=== PATIENT | female | born 1995 | race Caucasian/White ===

== ENCOUNTER 2024-10-22 00:12 | Inpatient (IN) | payer OTHER ==
[~2024-10-22 00:12] MED LIST: Carboprost Tromethamine 250 MCG/1 ML Amp IM PRN; Methylergonovine 0.2 MG/1 ML Amp IM PRN; NIFEdipine 10 MG Cap PO PRN; Oxytocin/Lactated Ringers 30 UNIT/500 ML BAG IV SCH; Sodium Chloride 0.9% 10 ML Syringe FLUSH PRN; Tranexamic Acid 1,000 MG in Sodium Chloride 0.9% 100 ML IV PRN
[2024-10-22 01:12] LABS: HEMATOCRIT 33.9 % (37.0-47.0); HEMOGLOBIN 11.4 g/dL (12.0-16.0); MEAN CORPUSCULAR HEMOGLOBIN 31.9 pg (27.0-34.0); MEAN CORPUSCULAR HGB CONC 33.6 g/dL (33.0-35.0); RED BLOOD CELL COUNT 3.57 10^6/uL (4.2-5.4); WHITE BLOOD CELL COUNT,WBC 8.3 10^3/uL (5.0-10.0)
[2024-10-22 01:31] LABS: ALANINE AMINOTRANSFERASE,ALT 31 U/L (14-59); ASPARTATE AMNIOTRANSFERASE,AST 20 U/L (15-37); BLOOD UREA NITROGEN,BUN 5 mg/dL (7-18); CREATININE 0.68 mg/dL (0.55-1.02); LACTATE DEHYDROGENASE,LDH 201 U/L (81-234); URIC ACID 3.7 mg/dL (2.6-6.0)
[2024-10-22 01:32] LABS: ESTIMATED GFR 120 mL/min (>=60)
[2024-10-22] MEDS ORDERED: Calcium Gluconate 10% 1 GM/10 ML SDV IVPUSH PRN (02:04)
[2024-10-22] MEDS: Labetalol 20 MG/4 ML Syringe IVPUSH PRN (02:18)
[2024-10-22] MEDS: Magnesium Sulfate 4 GM/100 mL 4 GM in Premix Bag 1 BAG IV ONE (02:20)
[2024-10-22] MEDS: Misoprostol 50 MCG (1/2 of 100 MCG) Tab PO SCH (02:23)
[2024-10-22 02:38] LABS: CREATININE,URINE RAND < 13.00 mg/dL (No establ ref range); PROTEIN,URINE RANDOM < 6.0 mg/dL (0.0-11.9)
[2024-10-22] MEDS: Magnesium Sulfate 2 GM/50 mL 2 GM in Premix Bag 1 BAG IV ONE (02:40)
[2024-10-22] MEDS: Labetalol 20 MG/4 ML Syringe IVPUSH ONE (03:10)
[2024-10-22] MEDS: Lactated Ringers 1,000 ML IV SCH (03:11)
[2024-10-22] MEDS: MAGNESIUM SULFATE IV SCH (03:38)
[2024-10-22] MEDS: Magnesium Sulf/Wat 4 GM/50 mL 4 GM in Premix Bag 50 BAG IV ONE (04:11)
[2024-10-22] MEDS: Labetalol 100 MG Tab PO ONE (04:15)
[2024-10-22] MEDS: Labetalol 20 MG/4 ML Syringe ONE (04:17)
[2024-10-22] MEDS: NIFEdipine 10 MG Cap PO SCH (05:06)
[2024-10-22] MEDS: Misoprostol 25 MCG (1/4 of 100 MCG) Tab PO PRN (06:43)
[2024-10-22] MEDS: Acetaminophen 325 MG Tab PO PRN (07:25)
[2024-10-22] MEDS: hydrALAZINE 20 MG/ML SDV IVPUSH PRN (11:06)
[2024-10-22] MEDS: NIFEdipine 30 MG Tab.ER PO ONE (11:12)
[2024-10-22] MEDS: Prenatal Multivitamin with Calcium/Folic Acid/Iron Tab PO SCH (12:04)
[2024-10-22] MEDS: hydrOXYzine HCl 25 MG Tab PO PRN ×2 (12:42→23:20)
[2024-10-22] MEDS: Furosemide 20 MG Tab PO ONE (12:54)
[2024-10-22] MEDS: Ondansetron 4 MG/2 ML SDV IVPUSH PRN (13:25)
[2024-10-22] MEDS: Labetalol 100 MG Tab PO SCH (14:16)
[2024-10-22] MEDS ORDERED: NIFEdipine 30 MG Tab.ER PO SCH (17:00)
[2024-10-22] MEDS: NIFEdipine 30 MG Tab.ER PO SCH (17:22)
[2024-10-22] MEDS: Misoprostol 100 MCG Tab PO ONE (20:28)
[2024-10-23] MEDS: Lactated Ringers 1,000 ML IV SCH (08:00)
[2024-10-23] MEDS: Oxytocin/Normal Saline 30 UNIT/500 ML BAG IV SCH (08:01)
[2024-10-23] MEDS: Lidocaine 1% 5 ML VIAL ONE (16:44)
[2024-10-23] MEDS: Lidocaine 1% 30 ML SDV ONE (16:44)
[2024-10-23] MEDS: Lidocaine 1% 30 ML SDV INJECT ONE ×2 (17:03→18:17)
[2024-10-23] MEDS: Lidocaine 1% 5 ML VIAL INJECT ONE (17:03)
[2024-10-23] MEDS: hydrOXYzine HCl 25 MG Tab PO ONE (23:46)
[2024-10-24] MEDS ORDERED: Lidocaine 1% 2 ML ONE (11:38)
[2024-10-24] MEDS: Lactated Ringers 1,000 ML IV ONE (18:31)
[2024-10-24] MEDS ORDERED: Oxytocin 10 Units/1 ML SDV IM PRN (18:51)
[2024-10-24] MEDS ORDERED: Lidocaine 2% 20 ML MDV ONE (18:58)
[2024-10-24] MEDS ORDERED: Tranexamic Acid 1,000 MG/10 ML Vial ONE (18:58)
[2024-10-24] MEDS ORDERED: Sodium Chloride 0.9% 100 ML ONE (18:59)
[2024-10-24] MEDS ORDERED: Lactated Ringers 1,000 ML IV SCH ×2 (19:00)
[2024-10-24] MEDS: Misoprostol 100 MCG Tab RECTAL PRN (20:40)
[2024-10-24] MEDS ORDERED: ceFAZolin 2 GM Vial ONE ×2 (20:52→20:53)
[2024-10-24] MEDS ORDERED: ceFAZolin 1 GM Vial ONE (20:53)
[2024-10-24] MEDS: Ketorolac 30 MG/ML SDV IVPUSH ONE (21:45)
[2024-10-24] MEDS: Acetaminophen/oxyCODONE 325-5 MG Tab PO PRN (22:00)
[2024-10-24] MEDS: Labetalol 20 MG/4 ML Syringe IVPUSH ONE (22:41)
[2024-10-24] MEDS: Labetalol 20 MG/4 ML Syringe ONE ×2 (22:49)
[2024-10-24] MEDS ORDERED: Tranexamic Acid 1,000 MG in Sodium Chloride 0.9% 100 ML IV PRN (22:50)
[2024-10-24] MEDS ORDERED: Naloxone 2 MG/2 ML Syringe IVPUSH PRN (22:50)
[2024-10-24] MEDS ORDERED: ePHEDrine 50 MG/ML SDV IVPUSH PRN (22:50)
[2024-10-24] MEDS ORDERED: Carboprost Tromethamine 250 MCG/1 ML Amp IM PRN (22:50)
[2024-10-24] MEDS ORDERED: Oxytocin/Lactated Ringers 30 UNIT/500 ML BAG IV SCH (22:50)
[2024-10-24] MEDS ORDERED: Methylergonovine 0.2 MG/1 ML Amp IM PRN (22:50)
[2024-10-24] MEDS ORDERED: Ondansetron 4 MG/2 ML SDV IVPUSH PRN (22:50)
[2024-10-24] MEDS ORDERED: Zolpidem 5 MG Tab PO PRN (22:50)
[2024-10-24] MEDS ORDERED: Acetaminophen/oxyCODONE 325-5 MG Tab PO PRN (22:50)
[2024-10-24] MEDS ORDERED: diphenhydrAMINE 50 MG/ML SDV IVPUSH PRN (22:50)
[2024-10-24] MEDS ORDERED: Acetaminophen 325 MG Tab PO PRN (22:50)
[2024-10-25] MEDS: Furosemide 100 MG/10 ML SDV IVPUSH ONE (00:30)
[2024-10-25] MEDS: hydrOXYzine HCl 25 MG Tab PO ONE (01:00)
[2024-10-25] MEDS: MAGNESIUM SULFATE IV SCH (01:40)
[2024-10-25] MEDS: Ketorolac 30 MG/ML SDV ONE (02:03)
[2024-10-25] MEDS: Acetaminophen/oxyCODONE 325-5 MG Tab ONE (02:03)
[2024-10-25] MEDS: ceFAZolin 2 GM Vial IVPUSH ONE (02:10)
[2024-10-25] MEDS: Magnesium Sulfate 20 GM/500mL 20 GM/500 ML BAG ONE (02:14)
[2024-10-25] MEDS: hydrOXYzine HCl 25 MG Tab ONE (02:14)
[2024-10-25] MEDS: Lactated Ringers 1,000 ML IV SCH (02:53)
[2024-10-25] MEDS: Ketorolac 30 MG/ML SDV IVPUSH SCH (04:10)
[2024-10-25] MEDS: Pantoprazole 40 MG Tab.CR PO SCH (05:33)
[2024-10-25 06:25] LABS: HEMATOCRIT 33.7 % (37.0-47.0); HEMOGLOBIN 11.5 g/dL (12.0-16.0); MEAN CORPUSCULAR HEMOGLOBIN 32.3 pg (27.0-34.0); MEAN CORPUSCULAR HGB CONC 34.1 g/dL (33.0-35.0); MEAN CORPUSCULAR VOLUME 94.7 fL (80-100); RED BLOOD CELL COUNT 3.56 10^6/uL (4.2-5.4); WHITE BLOOD CELL COUNT,WBC 10.1 10^3/uL (5.0-10.0)
[2024-10-25] MEDS: NIFEdipine 30 MG Tab.ER PO SCH ×2 (06:25→16:37)
[2024-10-25 06:55] LABS: A/G RATIO 0.59; ALBUMIN 1.9 g/dL (3.4-5.0); ANION GAP 10.6 mEq/L (7-13); BILIRUBIN TOTAL 0.4 mg/dL (0.2-1.0); CALCIUM 6.8 mg/dL (8.5-10.1); CREATININE 0.87 mg/dL (0.55-1.02); EST CRCL DRUG DOSING (CG) 88.51 mL/min; POTASSIUM,K 2.6 mmol/L (3.5-5.1); PROTEIN TOTAL,TP 5.1 g/dL (6.4-8.2)
[2024-10-25] MEDS: Labetalol 100 MG Tab PO SCH (09:36)
[2024-10-25] MEDS: Prenatal Multivitamin with Calcium/Folic Acid/Iron Tab PO SCH (09:37)
[2024-10-25] MEDS: Simethicone 80 MG Tab.Chew PO SCH (09:37)
[2024-10-25] MEDS: Docusate Sodium 100 MG Cap PO PRN (09:37)
[2024-10-25] MEDS ORDERED: NIFEdipine 30 MG Tab.ER PO SCH (17:00)
[2024-10-25] MEDS: Ibuprofen 800 MG Tab PO SCH (23:47)
== END 2024-10-26 08:53 | disposition home or self-care (01) | DRG 788 ==
LOC: DL.OB 00:12 → OBSVTOIN 10-24 19:51
PROVIDERS: ADMIT Student in an Organized Health Care Education/Training Program; ATTEND Student in an Organized Health Care Education/Training Program
PROC: 3E0DXGC Introduction of Other Therapeutic Substance into Mouth and Pharynx, External Approach (ICD-10-PCS; 2024-10-24)
PROC: 10907ZC Drainage of Amniotic Fluid, Therapeutic from Products of Conception, Via Natural or Artificial Opening (ICD-10-PCS; 2024-10-24)
PROC: 4A1HXCZ Monitoring of Products of Conception, Cardiac Rate, External Approach (ICD-10-PCS; 2024-10-24)
PROC: 10H07YZ Insertion of Other Device into Products of Conception, Via Natural or Artificial Opening (ICD-10-PCS; 2024-10-24)
PROC: 10D00Z1 Extraction of Products of Conception, Low, Open Approach (ICD-10-PCS; principal; 2024-10-24 19:30)
DX: O14.14 Severe pre-eclampsia complicating childbirth (principal); Z37.0 Single live birth; Z3A.37 37 weeks gestation of pregnancy; O66.9 Obstructed labor, unspecified; O69.81X0 Labor and delivery complicated by cord around neck, without compression, not applicable or unspecified; O62.0 Primary inadequate contractions; F43.21 Adjustment disorder with depressed mood; O99.345 Other mental disorders complicating the puerperium
CPT/HCPCS: 36415; 51702; 80053; 82565; 82570; 82947; 83615; 83735; 84156; 84450; 84460; 84520; 84550; 85027; 86850; 86900; 86901; A9270-GY; C1726; J0360; J1885; J1920; J1938; J2003; J2405; J2590; J3475; J7120